=== PATIENT | female | born 1990 | race Caucasian/White ===

== ENCOUNTER → 2016-12-25 | Outpatient (CLI) | payer BC ==
--- NOTE | 2016-12-29 08:39 | USB ---
Reason for exam: clinical finding. Indicated problem(s): other indicated problem in the right breast. Physical Findings: Nurse Summary: Patient complains of right breast lump at 12 o'clock x 3 months (nurse mm). US Breast RT Right breast ultrasound includes all four quadrants, the retroareolar region and axilla. Finding demonstrate a 0.39 x 0.20 x 0.45cm lesion too small to characterize at 9 o'clock and a 0.76 x 0.73 x 0.53cm mixed lesion at 7 o'clock. These results were verbally communicated with the patient and result sheet given to the patient on 12/25/16. ASSESSMENT: Probably benign, BI-RAD 3 RECOMMENDATION: Ultrasound of the right breast in 6 months.
== END ==
LOC: RADUSWWP 15:39
PROVIDERS: ATTEND Surgery
DX: N60.09 Solitary cyst of unspecified breast (principal)

== ENCOUNTER → 2017-11-11 | Outpatient (CLI) | payer BC ==
--- NOTE | 2017-11-12 11:05 | USB ---
Reason for exam: clinical finding. Physical Findings: Nurse Summary: Patient complains of righty breast tender nodule comes and goes at 12 o'clock, 1cm palpable right breast today at 7 o'clock (nurse pal). US Breast RT Right breast ultrasound includes all four quadrants, the retroareolar region and axilla. Finding demonstrates a a 0.5 x 0.5 x 0.3cm cystic lesion at 9 o'clock, a 0.5 x 0.5 x 0.5cm cystic lesion at 9 o'clock and a 0.7 x 0.4 x 0.8cm solid, hypoechoic lesion at 7 o'clock versus 7 x 5 x 8mm previously, this is at the palpable site. Stability suggests at benign etiology like a fibroadenoma. It can be followed clinically. These results were verbally communicated with the patient and result sheet given to the patient on 11/11/17. ASSESSMENT: Benign, BI-RAD 2 RECOMMENDATION: Routine screening mammogram of both breasts at age 41. Manage patient on a clinical basis. (any suspicious palpable abnormality) The stable 7 o'clock palpable area can be followed clinically. ANN
== END ==
LOC: RADUSWWP 15:34
PROVIDERS: ATTEND Surgery
DX: N60.09 Solitary cyst of unspecified breast (principal)